=== PATIENT | female | born 1955 | race American Indian/Alaskan Native ===

== ENCOUNTER 2016-08-11 13:46 | Emergency (ER) | payer OTHER ==
[2016-08-11 13:57] VITALS: RESP 16; TEMP 98.2; O2SAT 94
--- NOTE | 2016-08-11 14:43 | UCPHY ---
H & P Time Seen by Provider: 08/11/16 14:31 Patient Type: New HPI/ROS: CHIEF COMPLAINT: Bulge in vagina HISTORY OF PRESENT ILLNESS: Patient is had a total hysterectomy. She noted 3 days ago that when she had urinated and wiped she felt a bulge in the center of her vagina. No pain, no dysuria. No vomiting or nausea or abdominal pain. No bleeding. Has not recurred since then. REVIEW OF SYSTEMS: Abdomen: no vomiting, diarrhea, abdominal pain : no urinary symptoms She had some feeling of chills over the past week. PAST MEDICAL HISTORY: Total abdominal hysterectomy, hypertension. 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 Respiratory: Normal respiratory effort, breath sounds equal, lungs are clear to auscultation. Cardiovascular: Regular rate and rhythm. Gastrointestinal: Abdomen is soft and non tender. No hernia noted. No rebound or guarding. Neurological: Alert and oriented x3. Ambulatory. Skin: Warm and dry, no rashes. Emergency Department course/MDM: 1446: Discussed patient's presentation in detail with film projector operator color consultant Dr. Quinteros; she recommends gynecology office follow-up and no additional testing or imaging in the emergency department. Discussed with patient who is agreeable based on color consultant recommendation. Likely uterine cuff or bladder prolapse. Discussed with Cecilio Sanches at 1530; will f/u with BLOOD BANK ASSISTANT not PCP. Smoking Status: Former smoker Constitutional: Initial Vital Signs Temperature (C) 36.8 C 08/11/16 13:48 Heart Rate 78 08/11/16 13:48 Respiratory Rate 16 08/11/16 13:48 Blood Pressure 157/95 H 08/11/16 13:48 O2 Sat (%) 94 08/11/16 13:48 O2 Delivery Mode Room Air Allergies/Adverse Reactions: No Known Allergies Allergy (Verified 08/11/16 13:57) Home Medications: Medication Instructions Recorded Hydrochlorothiazide 08/11/16 Ramipril 08/11/16 Medical Decision Making - Data Points Laboratory Results: 08/11/16 14:45 Urine Color YELLOW Urine Appearance CLEAR Urine pH 6.0 (5.0-7.5) Ur Specific [place] 1.025 (1.002-1.030) Urine Protein NEGATIVE (NEGATIVE) Urine Ketones NEGATIVE (NEGATIVE) Urine Blood NEGATIVE (NEGATIVE) Urine Nitrate NEGATIVE (NEGATIVE) Urine Bilirubin NEGATIVE (NEGATIVE) Urine Urobilinogen 0.2 EU EU (0.2-1.0) Ur Leukocyte Esterase NEGATIVE (NEGATIVE) Ur Culture Indicated? NOT INDICATED (NI) Urine Glucose NEGATIVE (NEGATIVE) Departure - Departure Disposition: Home, Routine, Self-Care Clinical Impression: uterine cuff prolapse Condition: Good Instructions: Uterine Prolapse (ED) Additional Instructions: Normal urinalysis. Please call the follow-up OBGYN for office evaluation. It is most likely that you have intermittent prolapse of your bladder or uterine cuff. Referrals: Divya Sanches MD [Primary Care Provider] - As per Instructions Tamiko Quinteros DO [Doctor of Osteopathy] - As per Instructions (BLOOD BANK ASSISTANT followup referral. Call and tell them the urgent care MD discussed your case with Dr. Quinteros) - PQRS PQRS Measurement: na
[2016-08-11 14:50] LABS: COLOR YELLOW; LEUKOCYTE ESTERASE,URINE NEGATIVE (NEGATIVE); NITRITE,URINE NEGATIVE (NEGATIVE)
[2016-08-11 15:58] VITALS: BP 148/88; PULSE 69
== END 2016-08-11 15:27 | disposition home or self-care (01) ==
LOC: CED 13:46
DX: N99.3 Prolapse of vaginal vault after hysterectomy (principal); Z90.710 Acquired absence of both cervix and uterus
CPT/HCPCS: 81003-PO; 99203-PO; G0463-PO

== ENCOUNTER → 2016-11-13 | Outpatient (CLI) | payer OTHER | LOC: FIMAGING 12:13 | PROVIDERS: ATTEND Family Medicine | DX: Z12.31 Encounter for screening mammogram for malignant neoplasm of breast (principal) | CPT/HCPCS: G0202 ==

== ENCOUNTER 2017-11-02 08:45 | Emergency (ER) | payer OTHER ==
[2017-11-02 08:57] VITALS: BP 147/89
--- NOTE | 2017-11-02 09:27 | EDPHY ---
H & P Stated Complaint: PT. states rt knee injury d/t twisted laterally,intense pain aprox 1800 Time Seen by Provider: 11/02/17 08:50 HPI/ROS: Chief Complaint: Right knee pain HPI: 62-year-old woman presenting with right knee injury. Patient states she was walking substance steps last night when she twisted her knee while stepping on her shoe which had come partially after foot. She did not fall. She felt an immediate pain in the middle portion of her knee. She has been able to walk since then but occasion when she returns in the positions since shooting pain in the middle part of her knee. She was seen at urgent care last night had an x -ray which was read as normal. She was told to come the emergency department for ultrasound further evaluation. She said that she did take 1 have a last night with relief has been applying ice and this helps. She has continued to be able to ambulate on it but occasionally has some discomfort in feels that needs extra support. Is she did twist her knee a couple weeks ago while running but that had since improved. No other injuries. No other complaints at this time. ROS: 10 point Review of Systems is negative except as noted in the HPI. Social History: No smoking Family History: non-contributory Physical Exam: General: Awake, alert, no acute distress Right lower extremity: Right hip: Nontender, full range of motion without pain , right ankle, nontender, full range of motion of pain. Right calf is not swollen, no redness, no tenderness. Right knee: She has no lateral tenderness. No patellar tenderness. She has tenderness along the medial collateral ligament. No tibial plateau tenderness. She is able to flex 90. She is able to weight bear on it. She has pain with stretching of the medial collateral ligament. No meniscal tenderness. No effusion. She has 2+ dorsalis pedis pulses. Capillary refills less than 2 sec. Skin: No rash - Personal History Current Tetanus Diphtheria and Acellular Pertussis (TDAP): Yes Tetanus Vaccine Date: 2013 - Medical/Surgical History Hx Asthma: No Hx Chronic Respiratory Disease: No Hx Diabetes: No Hx Cardiac Disease: No Hx Renal Disease: No Hx Cirrhosis: No Hx Alcoholism: No Hx HIV/AIDS: No Hx Splenectomy or Spleen Trauma: No Other PMH: Med hx- HTN. Surg-hyst - Social History Smoking Status: Former smoker Constitutional: Initial Vital Signs Temperature (C) 36.5 C 11/02/17 08:53 Heart Rate 77 11/02/17 08:53 Respiratory Rate 16 11/02/17 08:53 Blood Pressure 147/89 H 11/02/17 08:53 O2 Sat (%) 95 11/02/17 08:53 O2 Delivery Mode Room Air Allergies/Adverse Reactions: No Known Allergies Allergy (Verified 11/02/17 08:51) Home Medications: Medication Instructions Recorded Hydrochlorothiazide 08/11/16 Ramipril 08/11/16 Nifedipine 11/02/17 Medical Decision Making ED Course/Re-evaluation: I have reviewed the patient's x-ray from urgent care. I did not see acute fracture. Symptoms are consistent with a medial collateral ligament strain. She has been placed in knee immobilizer. I have referred her to Orthopedics for follow-up. She continue taking occasional anti-inflammatories and ice. Departure - Departure Disposition: Home, Routine, Self-Care Clinical Impression: Knee sprain Condition: Good Instructions: Knee Sprain (ED) Additional Instructions: You may continue to use once a day anti-inflammatories for pain. You may also use acetaminophen 1000 mg 3 times a day for pain. Continue applying ice for 15 min of every hour while awake. You may use a knee immobilizer to provide support tear knee. Follow up with Orthopedics in about a week for further evaluation. Referrals: Danny Vega MD [Medical Doctor] - As per Instructions
== END 2017-11-02 09:38 | disposition home or self-care (01) ==
LOC: CED 08:45
DX: S83.91XA Sprain of unspecified site of right knee, initial encounter (principal); I10 Essential (primary) hypertension; Z87.891 Personal history of nicotine dependence; X58.XXXA Exposure to other specified factors, initial encounter
CPT/HCPCS: L1830